=== PATIENT | female | born 1950 | race African-American/Black ===

== ENCOUNTER 2019-08-03 18:33 | Emergency (ER) | payer MEDICARE, MEDICAID ==
[~2019-08-03] VITALS: Ht 154.9 cm; Wt 75.7 kg
--- NOTE | 2019-08-03 18:50 | NUR ---
ED Nurse Note: Pt ambulated to ED d/t abdominal pain with 10/10 pain scale and diarrhea. Pt is AOx4, calm and cooperative. Placed on bed and gown; hooked to campus monitor.
[2019-08-03 19:10] VITALS: BP 153/89
--- NOTE | 2019-08-03 19:14 | NUR ---
HAND-OFF: Report given to Lilia CORDERO.
--- NOTE | 2019-08-03 19:15 | NUR ---
ED Nurse Note: Got report from CONSUELO Baker. Patient AAO x4, VSS pt's BP 168/100 ER MD aware.
[2019-08-03] MEDS ORDERED: DiphenhydrAMINE 50mg/ml Inj IVP ONE (19:30)
[2019-08-03] MEDS ORDERED: Omnipaque-300 100ml vial INJ PRN (19:30)
[2019-08-03] MEDS ORDERED: Metoclopramide 10mg/2ml Inj IVP ONE (19:30)
[2019-08-03] MEDS ORDERED: Morphine Sulfate 4mg/ml Inj (IV USE ONLY) IVP ONE ×2 (19:30→22:30)
[2019-08-03] MEDS ORDERED: Ketorolac 30mg Inj IV ONE (19:30)
[2019-08-03 19:36] LABS: APPEARANCE,URINE CLEAR; BILIRUBIN, URINE NEGATIVE (NEGATIVE); COLOR,URINE PALE YELLOW; GLUCOSE, URINE (UA) NEGATIVE (NEGATIVE); KETONES,URINE 1+ (NEGATIVE); LEUKOCYTE ESTERASE ,URINE NEGATIVE (NEGATIVE); NITRITE,URINE NEGATIVE (NEGATIVE); PH,URINE 8 (4.5-8.0); PROTEIN,URINE NEGATIVE (NEGATIVE); UROBILINOGEN,URINE NORMAL MG/DL (0.0-1.0)
[2019-08-03 19:37] LABS: BASOPHILS % (AUTO) 1.2 % (0.0-2.0); EOSINOPHILS % (AUTO) 0.4 % (0.0-3.0); HEMATOCRIT 42.7 % (37.0-47.0); HEMOGLOBIN 13.8 G/DL (12.0-16.0); LYMPHOCYTES % (AUTO) 27.6 % (20.0-45.0); MEAN CORPUSCULAR VOLUME 83 FL (80-99); MONOCYTES % (AUTO) 4.5 % (1.0-10.0); NEUTROPHILS % (AUTO) 66.3 % (45.0-75.0); PLATELET COUNT 302 K/UL (150-450); RED BLOOD COUNT 5.16 M/UL (4.20-5.40); RED CELL DISTRIBUTION WIDTH 14.8 % (11.6-14.8); WHITE BLOOD COUNT 6.1 K/UL (4.8-10.8)
[2019-08-03 19:38] LABS: INR 0.9 (0.9-1.1)
[2019-08-03 19:50] LABS: ANION GAP 15 mmol/L (5-15); BLOOD UREA NITROGEN 7 mg/dL (7-18); CALCIUM 9.6 MG/DL (8.5-10.1); CARBON DIOXIDE 22 MMOL/L (21-32); CHLORIDE 99 MMOL/L (98-107); POTASSIUM 3.7 MMOL/L (3.5-5.1); SODIUM 136 MMOL/L (136-145)
[2019-08-03 19:54] LABS: ALANINE AMINOTRANSFERASE 23 U/L (12-78); ALBUMIN 3.9 G/DL (3.4-5.0); ALKALINE PHOSPHATASE 79 U/L (46-116); ASPARTATE AMINO TRANSFERASE 22 U/L (15-37); BILIRUBIN,TOTAL 0.4 MG/DL (0.2-1.0)
--- NOTE | 2019-08-03 21:39 | Diagnostic Imaging Report ---
EXAM: CT Abdomen and Pelvis With Intravenous Contrast CLINICAL HISTORY: ABD PAIN TECHNIQUE: Axial computed tomography images of the abdomen and pelvis with intravenous contrast. CTDI is 9 mGy and DLP is 444 mGy-cm. One or more of the following dose reduction techniques were used: automated exposure control, adjustment of the mA and/or kV according to patient size, use of iterative reconstruction technique. Coronal and sagittal reformatted images were created and reviewed. COMPARISON: 01/23/2007 FINDINGS: Lung bases: Unremarkable. No mass. No consolidation. ABDOMEN: Liver: Unremarkable. No mass. Gallbladder and bile ducts: Cholecystectomy. No ductal dilation. Pancreas: Unremarkable. No mass. No ductal dilation. Spleen: Unremarkable. No splenomegaly. Adrenals: Unremarkable. No mass. Kidneys and ureters: Chronic bilateral renal cortical scarring likely due to old ischemic or infectious insults. Benign left renal 2.4 cm cyst, no follow-up required. No hydronephrosis. Stomach and bowel: Colonic diverticulosis without acute diverticulitis. Liquid small and large bowel contents could be incidental or could represent an infectious or inflammatory enteritis or enterocolitis in the proper context. PELVIS: Appendix: No findings to suggest acute appendicitis. Bladder: Unremarkable. No mass. Reproductive: Unremarkable as visualized. ABDOMEN and PELVIS: Intraperitoneal space: Unremarkable. No free air. No significant fluid collection. Bones/joints: Multilevel age-related degenerative spine findings and osteopenia. No acute fracture. No dislocation. Soft tissues: Unremarkable. Vasculature: Unremarkable. No abdominal aortic aneurysm. Lymph nodes: Unremarkable. No enlarged lymph nodes. Other findings: ASVD. IMPRESSION: 1. Liquid small and large bowel contents could be incidental or could represent an infectious or inflammatory enteritis or enterocolitis in the proper context. 2. Otherwise no acute abnormality definitively identified to account for patient presentation. 3. Cholecystectomy. 4. Colonic diverticulosis without acute diverticulitis. 5. Multilevel age-related degenerative spine findings and osteopenia.
--- NOTE | 2019-08-03 21:48 | Emergency Room Report ---
History of Present Illness General Chief Complaint: Abdominal Pain Source: Patient, Medical Record Present Illness HPI The patient presents with several days of left lower quadrant pain, occasional vomiting and diarrhea. 4 days ago was watery stool. Her last 2 days is become thicker. She denies passing any blood. She is no vomiting blood. She is felt feverish but not documented temperature. She is never had this problem before. The pain is severe at this time and constant. Radiates somewhat towards her flank. It does not radiate down her leg. She denies any dysuria. She was seen yesterday at [facility]. She said she went there several times and they could not diagnose the problem. They told her she they felt she was impacted. A CT scan was done and blood work. She was discharged without any medications or prescriptions. Apparently she has [place] at home prescribed 07/29. She tried one yesterday and it did not help. Walks with walker due to chronic L leg weakness and back pain. No fevers, chills, sore throat, chest pain, palpitations, shortness of breath, rashes, depression, anxiety, visual changes, dizziness, headache. Allergies: Coded Allergies: No Known Allergies (Unverified , 08/03/19) Patient History Past Medical History: see triage record Past Surgical History: gavin Social History: Denies: smoking, alcohol use, drug use Social History Narrative Disabled - lives by herself Last Menstrual Period: N/A Now: No Reviewed Nursing Documentation: PMH: Agreed; PSxH: Agreed Nursing Documentation-PMH Hx Cardiac Problems: No - high cholesterol Hx Hypertension: Yes Hx Gastrointestinal Problems: Yes - GERD Review of Systems All Other Systems: negative except mentioned in HPI Physical Exam Vital Signs Date Time Temp Pulse Resp B/P (MAP) Pulse Ox O2 Delivery O2 Flow Rate FiO2 08/03/19 18:43 98.2 105 18 153/89 (110) 95 Room Air Sp02 EP Interpretation: reviewed, normal General Appearance: alert, GCS 15, non-toxic, mild distress - in pain Head: normocephalic Eyes: bilateral eye normal inspection, bilateral eye PERRL, bilateral eye EOMI ENT: moist mucus membranes Neck: supple Respiratory: lungs clear, normal breath sounds Cardiovascular #1: regular rate, rhythm Cardiovascular #2: 2+ radial (R) Gastrointestinal: normal inspection, no rebound, guarding, tenderness - LLQ, overweight Genitourinary: no CVA tenderness Musculoskeletal: back normal, normal range of motion, other - walks with walker Neurologic: alert, oriented x3, grossly normal Psychiatric: mood/affect normal Skin: no rash, warm/dry, other - Slight erythema and reaction to tape left antecubital where IV was used yesterday Medical Decision Making Diagnostic Impression: Primary Impression: Abdominal pain Qualified Codes: R10.32 - Left lower quadrant pain Additional Impressions: Nausea vomiting and diarrhea Chronic back pain Qualified Codes: M54.42 - Lumbago with sciatica, left side; G89.29 - Other chronic pain ER Course Patient presents with many days of left lower quadrant pain with nausea vomiting and diarrhea. Differential includes diverticulitis, gastroenteritis, urinary tract infection, renal stone, aortic aneurysm, ischemic bowel amongst others. Evaluation with EKG, chest x-ray and labs. Patient treated with IV hydration, and CT of the abdomen and pelvis along with labs. Reglan and morphine with Benadryl. Patient is placed on tableau administrator. EKG normal. Chest x-ray no infiltrates. Labs with normal white count. Glucose minimally elevated. Urinalysis essentially clear. CT suggests enteritis. No impaction. Still with LLQ guarding. Needs observation. Repeat morphine. Discussed with Jose Enrique at [facility] who accepts patient to [facility]. Laboratory Tests Test 08/03/19 18:50 08/03/19 19:05 Urine Color Pale yellow Urine Appearance Clear Urine pH 8 (4.5-8.0) Urine Specific [place] 1.010 (1.005-1.035) Urine Protein Negative (NEGATIVE) Urine Glucose (UA) Negative (NEGATIVE) Urine Ketones 1+ (NEGATIVE) H Urine Blood 1+ (NEGATIVE) H Urine Nitrite Negative (NEGATIVE) Urine Bilirubin Negative (NEGATIVE) Urine Urobilinogen Normal MG/DL (0.0-1.0) Urine Leukocyte Esterase Negative (NEGATIVE) Urine RBC 2-4 /HPF (0 - 2) H Urine WBC 0 /HPF (0 - 2) Urine Squamous Epithelial Cells Few /LPF (NONE/OCC) Urine Bacteria Few /HPF (NONE) White Blood Count 6.1 K/UL (4.8-10.8) Red Blood Count 5.16 M/UL (4.20-5.40) Hemoglobin 13.8 G/DL (12.0-16.0) Hematocrit 42.7 % (37.0-47.0) Mean Corpuscular Volume 83 FL (80-99) Mean Corpuscular Hemoglobin 26.7 PG (27.0-31.0) L Mean Corpuscular Hemoglobin Concent 32.2 G/DL (32.0-36.0) Red Cell Distribution Width 14.8 % (11.6-14.8) Platelet Count 302 K/UL (150-450) Mean Platelet Volume 5.8 FL (6.5-10.1) L Neutrophils (%) (Auto) 66.3 % (45.0-75.0) Lymphocytes (%) (Auto) 27.6 % (20.0-45.0) Monocytes (%) (Auto) 4.5 % (1.0-10.0) Eosinophils (%) (Auto) 0.4 % (0.0-3.0) Basophils (%) (Auto) 1.2 % (0.0-2.0) Prothrombin Time 9.8 SEC (9.30-11.50) Prothrombin Time INR 0.9 (0.9-1.1) Activated Partial Thromboplast Time 28 SEC (23-33) Sodium Level 136 MMOL/L (136-145) Potassium Level 3.7 MMOL/L (3.5-5.1) Chloride Level 99 MMOL/L (98-107) Carbon Dioxide Level 22 MMOL/L (21-32) Anion Gap 15 mmol/L (5-15) Blood Urea Nitrogen 7 mg/dL (7-18) Creatinine 1.0 MG/DL (0.55-1.30) Estimate Glomerular Filtration Rate > 60 mL/min (>60) Glucose Level 122 MG/DL (74-106) H Calcium Level 9.6 MG/DL (8.5-10.1) Total Bilirubin 0.4 MG/DL (0.2-1.0) Aspartate Amino Transferase (AST) 22 U/L (15-37) Alanine Aminotransferase (ALT) 23 U/L (12-78) Alkaline Phosphatase 79 U/L (46-116) Troponin I 0.013 ng/mL (0.000-0.056) Total Protein 8.0 G/DL (6.4-8.2) Albumin 3.9 G/DL (3.4-5.0) Globulin 4.1 g/dL Albumin/Globulin Ratio 1.0 (1.0-2.7) Lipase 109 U/L (73-393) EKG Diagnostic Results Rate: normal Rhythm: NSR ST Segments: no acute changes Rhythm Strip Diag. Results EP Interpretation: yes Rhythm: NSR, no PVC's, no ectopy Chest X-Ray Diagnostic Results Chest X-Ray Diagnostic Results : Chest X-Ray Ordered: Yes # of Views/Limited/Complete: 1 View Indication: Other EP Interpretation: Yes Interpretation: no consolidation, no effusion, no pneumothorax Impression: No acute disease Electronically Signed by: Electronically signed by Gordon Mcfarlane MD CT/MRI/US Diagnostic Results CT/MRI/US Diagnostic Results : Imaging Test Ordered: abd pelvis Impression fluid small and large bowel - enteritis suspect Last Vital Signs Date Time Temp Pulse Resp B/P (MAP) Pulse Ox O2 Delivery O2 Flow Rate FiO2 08/04/19 00:04 98.2 89 18 160/90 95 Room Air Status: improved Disposition: PLACE IN OBSERVATION Condition: Serious Referrals: [facility] (PCP) Gordon Mcfarlane MD Aug 03, 2019 21:47
--- NOTE | 2019-08-03 22:33 | Consultation ---
History of Present Illness General Date patient seen: Aug 03, 2019 Reason for Hospitalization: Abdominal Pain Present Illness HPI This is a very pleasant 69-year-old female with multiple medical comorbidities history of cholecystectomy and hysterectomy presented to emergency department at [facility] complaining of worsening abdominal pain left lower quadrant. Patient states that initially pain began approximately 6 days ago last July 27 where she had discomfort in her lower abdomen and since has been present. Over the last few days she has began to develop the "runs". She is been having diarrhea nonbloody multiple times throughout the day. Denies nausea vomiting fever chills. Pain described as a cramping left lower quadrant pain with some radiation to the left flank as well as the left leg. He has not had similar symptoms in the past before. Was unsure what to do and came for evaluation. CT ordered in the emergency department and as below. Surgery called to evaluate and assist with care. Patient seen in emergency department, patient evaluated, chart reviewed. Imaging reviewed personally. Allergies: Coded Allergies: No Known Allergies (Unverified , 08/03/19) Patient History History Provided By: Patient, Medical Record, PMD Healthcare decision maker Resuscitation status Advanced Directive on File Past Medical/Surgical History Past Medical/Surgical History: (1) Abdominal pain Review of Systems Review of Symptoms General ROS: no weight loss or fever Psychological ROS: no depression or mood changes, no memory loss Ophthalmic ROS: no visual changes or eye irritation ENT ROS: no nasal congestion, hearing loss, dizziness Allergy and Immunology ROS: no allergic symptoms or urticaria Hematological and Lymphatic ROS: no swollen glands, unusual bleeding or bruising Endocrine ROS: no polyuria, polydipsia, weight changes, temperature intolerance Respiratory ROS: no cough, shortness of breath, or wheezing Cardiovascular ROS: no chest pain or dyspnea on exertion Gastrointestinal ROS: abdominal pain, nio bright red blood in stool. Musculoskeletal ROS: no myalgias or arthralgias Neurological ROS: no TIA or stroke symptoms Dermatological ROS: no new or changing skin lesions, rashes or pruritis Physical Exam Physical Exam General appearance: alert, cooperative, no distress, appears stated age Head: Normocephalic, without obvious abnormality, atraumatic Eyes: conjunctivae/corneas clear. PERRL, EOM's intact. Fundi benign Throat: Lips, mucosa, and tongue normal. Teeth and gums normal Neck: supple, symmetrical, trachea midline, no adenopathy, thyroid: not enlarged, symmetric, no tenderness/mass/nodules, no carotid bruit and no JVD Lungs: clear to auscultation bilaterally Heart: regular rate and rhythm, S1, S2 normal, no murmur, click, rub or gallop Abdomen: soft, discomfort tender left lower quadrant rating towards the flank. Bilateral groins normal. Right lower quadrant upper and left upper quadrant nontender. Prior incisions from prior surgeries well-healed.. Bowel sounds normal. No masses, no organomegaly Extremities: extremities normal, atraumatic, no cyanosis or edema Pulses: 2+ and symmetric Skin: Skin color, texture, turgor normal. No rashes or lesions Neurologic: Grossly normal Last 24 Hour Vital Signs Date Time Temp Pulse Resp B/P (MAP) Pulse Ox O2 Delivery O2 Flow Rate FiO2 08/03/19 20:06 98.2 08/03/19 20:05 98.2 08/03/19 19:10 98.2 18 153/89 95 Room Air 08/03/19 19:10 105 18 Room Air 08/03/19 18:43 98.2 105 18 153/89 (110) 95 Room Air Laboratory Tests Test 08/03/19 18:50 08/03/19 19:05 Urine Color Pale yellow Urine Appearance Clear Urine pH 8 (4.5-8.0) Urine Specific [place] 1.010 (1.005-1.035) Urine Protein Negative (NEGATIVE) Urine Glucose (UA) Negative (NEGATIVE) Urine Ketones 1+ (NEGATIVE) H Urine Blood 1+ (NEGATIVE) H Urine Nitrite Negative (NEGATIVE) Urine Bilirubin Negative (NEGATIVE) Urine Urobilinogen Normal MG/DL (0.0-1.0) Urine Leukocyte Esterase Negative (NEGATIVE) Urine RBC 2-4 /HPF (0 - 2) H Urine WBC 0 /HPF (0 - 2) Urine Squamous Epithelial Cells Few /LPF (NONE/OCC) Urine Bacteria Few /HPF (NONE) White Blood Count 6.1 K/UL (4.8-10.8) Red Blood Count 5.16 M/UL (4.20-5.40) Hemoglobin 13.8 G/DL (12.0-16.0) Hematocrit 42.7 % (37.0-47.0) Mean Corpuscular Volume 83 FL (80-99) Mean Corpuscular Hemoglobin 26.7 PG (27.0-31.0) L Mean Corpuscular Hemoglobin Concent 32.2 G/DL (32.0-36.0) Red Cell Distribution Width 14.8 % (11.6-14.8) Platelet Count 302 K/UL (150-450) Mean Platelet Volume 5.8 FL (6.5-10.1) L Neutrophils (%) (Auto) 66.3 % (45.0-75.0) Lymphocytes (%) (Auto) 27.6 % (20.0-45.0) Monocytes (%) (Auto) 4.5 % (1.0-10.0) Eosinophils (%) (Auto) 0.4 % (0.0-3.0) Basophils (%) (Auto) 1.2 % (0.0-2.0) Prothrombin Time 9.8 SEC (9.30-11.50) Prothromb Time International Ratio 0.9 (0.9-1.1) Activated Partial Thromboplast Time 28 SEC (23-33) Sodium Level 136 MMOL/L (136-145) Potassium Level 3.7 MMOL/L (3.5-5.1) Chloride Level 99 MMOL/L (98-107) Carbon Dioxide Level 22 MMOL/L (21-32) Anion Gap 15 mmol/L (5-15) Blood Urea Nitrogen 7 mg/dL (7-18) Creatinine 1.0 MG/DL (0.55-1.30) Estimat Glomerular Filtration Rate > 60 mL/min (>60) Glucose Level 122 MG/DL (74-106) H Calcium Level 9.6 MG/DL (8.5-10.1) Total Bilirubin 0.4 MG/DL (0.2-1.0) Aspartate Amino Transf (AST/SGOT) 22 U/L (15-37) Alanine Aminotransferase (ALT/SGPT) 23 U/L (12-78) Alkaline Phosphatase 79 U/L (46-116) Troponin I 0.013 ng/mL (0.000-0.056) Total Protein 8.0 G/DL (6.4-8.2) Albumin 3.9 G/DL (3.4-5.0) Globulin 4.1 g/dL Albumin/Globulin Ratio 1.0 (1.0-2.7) Lipase 109 U/L (73-393) Height (Feet): 5 Height (Inches): 1.00 Weight (Pounds): 167 Medications Current Medications Medications (Trade) Dose Ordered Sig/Karis Route PRN Reason Start Time Stop Time Status Last Admin Dose Admin Barium Sulfate (Readi-Cat 2) 450 ml NOW PRN ORAL Radiology Procedure 08/03/19 19:30 08/05/19 19:16 Iohexol (OMNIPAQUE-300 100ml) 100 ml NOW PRN INJ Radiology Procedure 08/03/19 19:30 08/05/19 19:16 Morphine Sulfate (Morphine Sulfate) 4 mg ONCE ONCE IVP 08/03/19 22:30 08/03/19 22:31 Assessment/Plan Problem List: (1) Abdominal pain Assessment & Plan: 69-year-old female with abdominal pain and diarrhea. Afebrile, hemodynamically stable, labs okay. Imaging noted as below. Examination with left lower quadrant discomfort and some mild left flank discomfort. No acute peritonitis or surgical abdomen identified. Potentially infectious versus inflammatory bowel enteritis No acute surgical intervention indicated or recommended at this time Do recommend patient be admitted for observation given the duration of symptoms and recent changes including diarrhea. Should have repeat blood work in the morning as well as a repeat abdominal examination Hold on antibiotics or pain medication Thank you will follow with recommendations ABDOMEN: Liver: Unremarkable. No mass. Gallbladder and bile ducts: Cholecystectomy. No ductal dilation. Pancreas: Unremarkable. No mass. No ductal dilation. Spleen: Unremarkable. No splenomegaly. Adrenals: Unremarkable. No mass. Kidneys and ureters: Chronic bilateral renal cortical scarring likely due to old ischemic or infectious insults. Benign left renal 2.4 cm cyst, no follow-up required. No hydronephrosis. Stomach and bowel: Colonic diverticulosis without acute diverticulitis. Liquid small and large bowel contents could be incidental or could represent an infectious or inflammatory enteritis or enterocolitis in the proper context. PELVIS: Appendix: No findings to suggest acute appendicitis. Bladder: Unremarkable. No mass. Reproductive: Unremarkable as visualized. ABDOMEN and PELVIS: Intraperitoneal space: Unremarkable. No free air. No significant fluid collection. Bones/joints: Multilevel age-related degenerative spine findings and osteopenia. No acute fracture. No dislocation. Soft tissues: Unremarkable. Vasculature: Unremarkable. No abdominal aortic aneurysm. Lymph nodes: Unremarkable. No enlarged lymph nodes. Other findings: ASVD. IMPRESSION: 1. Liquid small and large bowel contents could be incidental or could represent an infectious or inflammatory enteritis or enterocolitis in the proper context. 2. Otherwise no acute abnormality definitively identified to account for patient presentation. 3. Cholecystectomy. 4. Colonic diverticulosis without acute diverticulitis. 5. Multilevel age-related degenerative spine findings and osteopenia. ICD Codes: R10.9 - Unspecified abdominal pain SNOMED: [id number] Qualifiers: Qualified Codes: R10.32 - Left lower quadrant pain Joel Escobar Aug 03, 2019 22:33
[2019-08-03 23:19] VITALS: BP 135/82
--- NOTE | 2019-08-03 23:24 | NUR ---
Note [email or web address] in EDM - 08/03/19 at 2332 by JAYDE ED Nurse Note: Patient was transfered to [facility] due to COPD exacerbation. Patient was transfered via [employer] private transportation # [id number], with all belongings. Patient AAO x4, VSS at this time, skin is warm to touch. Patient was transfered with IV access on R AC 20 ga.
[2019-08-03 23:44] VITALS: BP 160/90
[2019-08-04 00:04] VITALS: BP 160/90
--- NOTE | 2019-08-04 00:07 | NUR ---
ED Nurse Note: Patient was transfered to [facility] due to abdominal pain. Patient was transfered via [facility] ambulance #[id number], with all belongings. Patient AAO x4, VSS at this time, skin is warm top touch.
== END 2019-08-03 23:27 | disposition short-term general hospital (02) ==
LOC: EMR 19:10
DX: R10.13 Epigastric pain (principal); R11.2 Nausea with vomiting, unspecified; R19.7 Diarrhea, unspecified; M54.42 Lumbago with sciatica, left side; G89.29 Other chronic pain; E66.3 Overweight; Z68.31 Body mass index [BMI] 31.0-31.9, adult; E78.00 Pure hypercholesterolemia, unspecified; Z90.49 Acquired absence of other specified parts of digestive tract; I10 Essential (primary) hypertension; K21.9 Gastro-esophageal reflux disease without esophagitis
CPT/HCPCS: 36415; 74177; 80053; 81003; 83690; 84484; 85025; 85610; 85730; 86850; 86900; 86901; 93005; 96361; 96374; 96375; 96376; 99284; J1200; J1885; J2270; J2765; J7030; Q9967